=== PATIENT | female | born 1990 | race Caucasian/White ===

== ENCOUNTER 2017-11-08 07:09 | Day surgery (SDC) | payer OTHER ==
[~2017-11-08] VITALS: Ht 162.6 cm; Wt 83.2 kg
[2017-11-08] VITALS (12 sets, daily range): BP systolic 102–124; BP diastolic 64–74; PULSE 64–96; RESP 16–24; Ht 162.6 cm; Wt 83.2 kg
[~2017-11-08 07:09] MED LIST: CEFAZOLIN 2 GM/50 ML (PMX) 50 ML (FOR WT < 120 KG) IVPB ONE; LACTATED RINGER'S 1,000 ML IV SCH; PREN1TAB62 PO
[2017-11-08] MEDS ORDERED: FENTAnyl 50 MCG/ML VIAL ONE (07:28)
[2017-11-08] MEDS ORDERED: PROPOFOL 20 ML ONE (07:28)
[2017-11-08] MEDS ORDERED: ONDANSETRON 4 MG INJ ONE (07:28)
[2017-11-08] MEDS ORDERED: SUCCINYLCHOLINE CHLORIDE 100 MG/5 ML SYG IV ONE (07:28)
[2017-11-08] MEDS ORDERED: METOCLOPRAMIDE 10 MG INJ ONE (07:28)
[2017-11-08] MEDS ORDERED: CEFAZOLIN 1 GM INJ ONE (07:28)
[2017-11-08] MEDS ORDERED: ROCURONIUM 50 MG INJ ONE (07:28)
[2017-11-08] MEDS ORDERED: KETOROLAC 30 MG INJ ONE (08:17)
[2017-11-08] MEDS ORDERED: BUPIVACAINE 0.25% (MPF) 30 ML INJ ONE (08:23)
[2017-11-08] MEDS ORDERED: MEPERIDINE 25 MG INJ IV PRN (08:30)
[2017-11-08] MEDS ORDERED: HYDROmorphONE (0.2 MG/ML) 10ML SYG IV PRN ×3 (08:30)
[2017-11-08] MEDS ORDERED: ONDANSETRON 4 MG INJ IV PRN (08:30)
[2017-11-08] MEDS ORDERED: FENTAnyl 50 MCG/ML VIAL IV PRN ×2 (08:30)
[2017-11-08] MEDS ORDERED: NEOSTIGMINE 3 MG/3 ML SYRINGE ONE (08:41)
[2017-11-08] MEDS ORDERED: ATROPINE 1 MG/10 ML SYRINGE ONE (08:41)
--- NOTE | 2017-11-08 08:47 | OPR ---
Date/Time of Note Date/Time of Note DATE: 11/08/17 TIME: 08:45 Operative Report Procedure Date: Nov 08, 2017 Preoperative Diagnosis Patient desires permanent sterilization. She declined Essure. She desires laparoscopic tubal fulguration. Postoperative Diagnosis Patient desires permanent sterilization. She declined Essure. She desires laparoscopic tubal fulguration. Operation/Procedure Performed Laparoscopic fulguration and transection of bilateral tubes. Surgeon see signature line Decker Operator none Anesthesia Type: general Estimated Blood Loss: minimal Transfusion none Specimen none Grafts/Implants none Tubes/Drains none Complications none Pt Condition Post Procedure: stable Disposition: PACU Procedure Description FINDINGS: Normal tubes, ovaries bilaterally. Normal uterus. CONSENT: Please see my preop H and P consent in the office for the consent process. DESCRIPTION OF PROCEDURE: She was taken to operating room and general anesthesia was induced. She was prepped and draped in the usual sterile fashion in dorsal lithotomy position. Surgical time-out was done. Anterior lip of the cervix was grasped using a single-tooth tenaculum, and a HUMI was inserted in normal fashion. The tenaculum was removed. There was no bleeding from the cervix. The patient already had a Fontanez catheter as well. Gloves were changed. A 5 mm incision was developed inside the umbilicus. A blunt trocar was inserted in the normal fashion. Intraperitoneal position was confirmed using the laparoscope. Pneumoperitoneum was obtained. The patient was placed in Trendelenburg position. A second trocar was inserted under direct visualization of the laparoscope at the pubic hairline in the midline. A 5 cm mid ampullary region of the right tube was coagulated. Complete desiccation of the entire diameter of tube was visualized. The middle of the coagulated portion was cut. There was no bleeding. Same procedure was done on the contralateral side. All instruments removed under direct visualization of the laparoscope after pneumoperitoneum was released. There was no bleeding. Skin closed using 4-0 Monocryl. Then 10 mL 0.25% Marcaine with epinephrine was injected at the incision sites. HUMI was removed. There was no bleeding from the vagina. Patient tolerated the procedure well. JOSÉ LUIS SAHU MD Nov 08, 2017 08:47
== END 2017-11-08 12:00 | disposition home or self-care (01) ==
LOC: SDS 07:09
PROVIDERS: ATTEND Specialist
DX: Z30.2 Encounter for sterilization (principal)
CPT/HCPCS: 58565; 84703; J0461; J0690; J1885; J2405; J2710; J2765; J3010; Z7512; Z7610